=== PATIENT | female | born 1980 | race Asian ===

== ENCOUNTER 2022-10-28 04:29 | Day surgery (SDC) | payer OTHER ==
[2022-10-27 11:50] VITALS: BMI 26.4
[2022-10-28 10:01] VITALS: TEMP 98
[2022-10-28 10:26] VITALS: BP 109/67; PULSE 81; RESP 17
== END 2022-10-28 10:20 | disposition home or self-care (01) ==
LOC: JASU-ENDO 04:29
PROVIDERS: ATTEND Internal Medicine Gastroenterology
PROC: 0DBL8ZX Excision of Transverse Colon, Via Natural or Artificial Opening Endoscopic, Diagnostic (ICD-10-PCS; 2022-10-28)
PROC: 0DBN8ZX Excision of Sigmoid Colon, Via Natural or Artificial Opening Endoscopic, Diagnostic (ICD-10-PCS; 2022-10-28)
PROC: 0DBP8ZX Excision of Rectum, Via Natural or Artificial Opening Endoscopic, Diagnostic (ICD-10-PCS; 2022-10-28)
PROC: 0DBM8ZX Excision of Descending Colon, Via Natural or Artificial Opening Endoscopic, Diagnostic (ICD-10-PCS; 2022-10-28)
PROC: 0DBH8ZX Excision of Cecum, Via Natural or Artificial Opening Endoscopic, Diagnostic (ICD-10-PCS; 2022-10-28)
PROC: 0DBK8ZX Excision of Ascending Colon, Via Natural or Artificial Opening Endoscopic, Diagnostic (ICD-10-PCS; principal; 2022-10-28 09:00)
DX: K63.89 Other specified diseases of intestine (principal); K59.89 Other specified functional intestinal disorders
CPT/HCPCS: 81025; 88305-TC